=== PATIENT | male | born 1970 | race Caucasian/White ===

== ENCOUNTER 2016-06-17 12:46 | Emergency (ER) | payer BC, MEDICARE ==
[2016-06-17] MEDS ORDERED: Sodium Chloride 0.9% 10 ML Syringe FLUSH PRN (13:45)
[2016-06-17] MEDS ORDERED: Ondansetron 4 MG/2 ML SDV IVPUSH ONE (13:45)
[2016-06-17] MEDS ORDERED: Sodium Chloride 0.9% 10 ML Syringe FLUSH ONE (14:27)
[2016-06-17] MEDS ORDERED: Diatrizoate Meglumine/Diatrizoate Sodium 37% 120 ML Bottle PO ONE (14:27)
[2016-06-17] MEDS ORDERED: Iopamidol 612 MG/ML 150 ML Bottle IVPUSH ONE (14:27)
--- NOTE | 2016-06-17 14:46 | EDM.PDOC ---
ED HPI GI/ABDOMINAL - General Chief Complaint: Abdominal Pain Stated Complaint: ABDOMINAL PAIN Time Seen by Provider: 06/17/16 13:13 Source of Information: Reports: Patient History Limitations: Reports: No limitations - History of Present Illness INITIAL COMMENTS - FREE TEXT/NARRATIVE: Patient presents for evaluation of abdominal. Patient reports of abdominal pain began on Monday. He states it was very severe. he rates as a 7 or 8 he states it comes and goes. States Monday, Monday and were not as severe. He states the pain today is much more severe again and is 8/10. He reports associated symptoms of nausea and one episode of loose stools. His reports that he was very diaphoretic this morning which prompted their visit to the ER. He denies black or bloody stools, constipation, vomiting, fevers, chills, dysuria or hematuria. Patient denies any surgeries to his abdomen. Patient reports that 3 months ago he had similar pain. he states that the pain was in the right upper quadrant that time. He was seen in [place] and was told he has gallstones. She also reports that he is a stone in his appendix. He was treated with pain medication. He states that the pain had resolved until Monday. Patient reports that he last ate at 0930. He states that he had some cake, M& Ms and coffee. Location: [facility] - Related Data Allergies/ADRs: Allergies Allergy/AdvReac Type Severity Reaction Status Date / Time No Known Allergies Allergy Verified 12/17/15 20:44 Home Meds: Home Meds Magnesium Citrate [Citrate of Magnesia] 296 ml PO ONETIME #1 bottle 06/17/16 [Rx ] Past Medical History Cardiovascular History: Reports: Hypertension Gastrointestinal History: Reports: GERD Musculoskeletal History: Reports: Osteoarthritis - Past Surgical History HEENT Surgical History: Reports: Tonsillectomy Male Surgical History: Reports: Circumcision Musculoskeletal Surgical History: Reports: Carpal tunnel Social & Family History - Tobacco Use Smoking Status *Q: Current Some Day Smoker Years of Tobacco use: 30 Packs/Tins Daily: 0.1 - Caffeine Use Caffeine Use: Reports: Coffee, Soda, Tea - Recreational Drug Use Recreational Drug Use: No - Living Situation & Occupation Living situation: Reports: , with spouse 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 Denies: fever, decreased appetite GI/Abdominal: Reports: Abdominal pain (RLQ), Diarrhea (x1 episode), Nausea. Denies: Constipation, Hematochezia, Melena, Vomiting : Reports: no symptoms. Denies: dysuria, flank pain ED EXAM, GI/ABD - Physical Exam Exam: See Below Exam Limited By: No limitations General Appearance: alert, WD/WN, no apparent distress Respiratory/Chest: no respiratory distress, lungs clear, normal breath sounds Cardiovascular: normal peripheral pulses, regular rate, rhythm, no murmur GI/Abdominal: normal bowel sounds, soft, tenderness (RLQ), McBurney's sign. No : guarding, rebound, psoas sign, obturator sign, Rovsing's sign, Rosas's sign Neurological: alert, oriented, normal cognition Psychiatric: normal affect, normal mood Skin Exam: Warm, Dry, Normal color Course - Vital Signs Last Recorded V/S: Last Vital Signs Temp 37.2 C 06/17/16 17:19 Pulse 74 06/17/16 17:19 Resp 24 H 06/17/16 13:19 BP 157/102 H 06/17/16 17:19 Pulse Ox 97 06/17/16 17:19 - Orders/Labs/Meds Labs: Laboratory Tests 06/17/16 06/17/16 06/17/16 Range/Units 13:50 13:50 15:35 WBC 8.19 (4.23-9.07) K/mm3 RBC 5.06 (4.63-6.08) M/mm3 Hgb 15.4 (13.7-17.5) gm/L Hct 45.2 (40.1-51.0) % MCV 89.3 (79.0-92.2) fl MCH 30.4 (25.7-32.2) pg MCHC 34.1 (32.2-35.5) g/dl RDW Std Deviation 41.0 (35.1-43.9) fL Plt Count 276 (163-337) K/mm3 MPV 9.2 L (9.4-12.3) fl Neutrophils % (Manual) 58 (40-60) % Band Neutrophils % 0 (0-10) % Lymphocytes % (Manual) 41 H (20-40) % Atypical Lymphs % 0 % Monocytes % (Manual) 1 L (2-10) % Eosinophils % (Manual) 0 L (0.8-7.0) % Basophils % (Manual) 0 L (0.2-1.2) Platelet Estimate Adequate RBC Morph Comment Normal Sodium 143 (136-145) mEq/L Potassium 5.0 (3.5-5.1) mEq/L Chloride 107 (98-107) mEq/L Carbon Dioxide 29 (21-32) mEq/L Anion Gap 12.0 (5-15) BUN 11 (7-18) mg/dL Creatinine 1.1 (0.7-1.3) mg/dL Est Cr Clr Drug Dosing TNP Estimated GFR (MDRD) > 60 (>60) mL/min BUN/Creatinine Ratio 10.0 L (14-18) Glucose 99 (74-106) mg/dL Calcium 8.8 (8.5-10.1) mg/dL Total Bilirubin 0.3 (0.2-1.0) mg/dL AST 14 L (15-37) U/L ALT 32 (16-63) U/L Alkaline Phosphatase 83 (46-116) U/L C-Reactive Protein 0.2 (<1.0) mg/dL Total Protein 7.8 (6.4-8.2) g/dl Albumin 4.1 (3.4-5.0) g/dl Globulin 3.7 gm/dL Albumin/Globulin Ratio 1.1 (1-2) Lipase 132 (73-393) U/L Urine Color Yellow (Yellow) Urine Appearance Clear (Clear) Urine pH 6.5 (5.0-8.0) Ur Specific [place] 1.025 (1.005-1.030) Urine Protein 1+ H (Negative) Urine Glucose (UA) Negative (Negative) Urine Ketones Negative (Negative) Urine Occult Blood Negative (Negative) Urine Nitrite Negative (Negative) Urine Bilirubin Negative (Negative) Urine Urobilinogen 1.0 (0.2-1.0) Ur Leukocyte Esterase Negative (Negative) Urine RBC 0-5 (0-5) /hpf Urine WBC 0-5 (0-5) /hpf Ur Squamous Epith Cells 0-5 (0-5) /hpf Urine Bacteria Not seen (FEW) /hpf Urine Mucus Not seen (FEW) /hpf Meds: Medications Discontinued Medications Generic Name Dose Route Start Last Admin Trade Name Freq PRN Reason Stop Dose Admin Clonidine HCl 0.1 mg 06/17/16 15:06 06/17/16 15:58 Catapres PO 06/17/16 15:07 Not Given ONETIME ONE Clonidine HCl 0.1 mg 06/17/16 15:32 06/17/16 15:55 Catapres PO 06/17/16 15:33 0.1 mg ONETIME ONE Administration Diatrizoate Meglum/Diatrizoate Sod 90 ml 06/17/16 14:27 06/17/16 15:44 Gastrografin 37% PO 06/17/16 14:28 90 ml ONETIME ONE Administration Hydromorphone HCl 0.5 mg 06/17/16 15:08 06/17/16 15:16 Dilaudid IVPUSH 06/17/16 15:09 0.5 mg ONETIME ONE Administration Iopamidol 125 ml 06/17/16 14:27 06/17/16 15:44 Isovue-300 (61%) IVPUSH 06/17/16 14:28 125 ml ONETIME ONE Administration Ondansetron HCl 4 mg 06/17/16 13:45 06/17/16 14:03 Zofran IVPUSH 06/17/16 13:46 4 mg ONETIME ONE Administration Sodium Chloride 10 ml 06/17/16 13:45 06/17/16 14:11 Saline Flush FLUSH 10 ml ASDIRECTED PRN Administration Keep Vein Open Sodium Chloride 10 ml 06/17/16 14:27 06/17/16 15:44 Saline Flush FLUSH 06/17/16 14:28 10 ml ONETIME ONE Administration - Radiology Interpretation Free Text/Narrative:: CT abdomen and pelvis with contrast impression per Dr. Kay: 1. Appendix within the right upper abdomen. Appendix measures about 8 mm in dimension which is at the upper limits of normal. There is an appendicolith measuring 1.1 cm within the appendix. Minimal inflammatory change is suggested. Please correlate if patient has any confirmatory symptoms for appenicitis. 2. Mild increased stool particularly within the right colon and cecum. 3. Multiple calcified gallstones. 4. Other incidental findings. CT Results Date: 06/17/16 - Re-Assessments/Exams Free Text/Narrative Re-Assessment/Exam: 06/18/16 16:45 Labs returned. WBC is 8.19, hgb is 15.4 and plts are 276 CRP is within normal limits at 0.2 UA shows 1+ protein. Negative for nitrates, leukocytes, blood and glucose. Sodium is 143, potassium is 5.0 chloride is 107. Anion gap is 12.0. Glucose is 99. AST 14, ALT is 32 alkaline phosphatase is 83. Total bilirubin 0.3. Lipase is within normal limits at 132. I reviewed the CT and lab results with the patient. more than likely the constipation causing the pain and not appendicitis. His white blood cell count is CRP are normal. Aside from the right lower quadrant his exam is unremarkable for appendicitis. I'll have him utilize a bottle of mag citrate tomorrow morning if his symptoms continue or worsen he should return to the ER. Followup with his family medicine provider this week to further evaluate the gallstones. Patient reports pain is greatly improved after IV dilaudid. Blood pressure lowered with clonidine. Will discharge home at this time. Discharge instructions as documented. Departure - Departure Time of Disposition: 16:49 Disposition: Home, Self-Care 01 Condition: good Clinical Impression: Constipation, Gallstones Prescriptions: Magnesium Citrate [Citrate of Magnesia] 296 ml PO ONETIME #1 bottle Instructions: Cholelithiasis, [id number], Constipation, Adult Referrals: PCP,None [Primary Care Provider] - Amparo Robbins [Physician] - Forms: ED Department Discharge Additional Instructions: Drink the bottle of mag citrate over 1-2 hours tomorrow morning. OTC tylenol or motrin as needed for pain. Drink plenty of fluids. Follow-up with family med or internal med in 1-2 weeks for your gallstones. You may require an ultrasound and possibly a hida scan to further evaluate your gallbladder. If you are unable to follow-up with inderjit gibbs, recommend Dr. Salas here in [place]. Call [phone] to schedule with him Please return to the ER should your symptoms change or worsen.
[2016-06-17] MEDS ORDERED: cloNIDine 0.1 MG Tab PO ONE ×2 (15:06→15:32)
[2016-06-17] MEDS ORDERED: HYDROmorphone 0.5 MG/0.5 ML Syringe IVPUSH ONE (15:08)
--- NOTE | 2016-06-17 16:19 | CT ---
CT abdomen and pelvis Technique: Multiple axial sections through the abdomen were obtained from above the dome of the diaphragm inferiorly through the pubic symphysis. Intravenous and oral contrast was utilized. Delayed images were also obtained through the abdomen and pelvis. Comparison: No previous study. Increased stool is noted within the right and colon and cecum. Lesser increased stool within other portions of the colon. Appendicoliths are seen within the appendix which is within the right upper quadrant. Appendicolith measures about 1.1 cm in size. Appendix is mildly prominent in size with very minimal inflammatory change being seen. Visualized lung bases shows minimal atelectasis on the right side. Liver and spleen shows no focal parenchymal abnormality. Multiple gallstones are seen within the gallbladder. Adrenal glands show no nodule. Pancreas is within normal limits. Cyst is identified within each kidney. Largest cyst measures approximately 2.3 cm. Aorta shows no aneurysmal dilatation. No retroperitoneal adenopathy or mesenteric abnormalities are seen. No pelvic mass or adenopathy is seen. Small fat-containing bilateral inguinal hernias are incidentally noted. Bone window settings shows scattered degenerative change within the spine. Delayed images shows contrast excretion into both ureters. Ureters show no dilatation. Contrast noted within the bladder. Impression: 1. Appendix within the right upper abdomen. Appendix measures about 8 mm in dimension which is at the upper limits of normal. There is an appendicolith measuring 1.1 cm within the appendix. Minimal inflammatory change is suggested. Please correlate if patient has any confirmatory symptoms for appendicitis. 2. Mild increased stool particularly within the right colon and cecum. 3. Multiple calcified gallstones. 4. Other incidental findings as noted above. Diagnostic code #3
[2016-06-17 17:24] VITALS: BP 157/102
== END 2016-06-17 17:25 | disposition home or self-care (01) ==
LOC: JD.ED 12:46
DX: K80.80 Other cholelithiasis without obstruction (principal); K59.00 Constipation, unspecified; I10 Essential (primary) hypertension; F17.210 Nicotine dependence, cigarettes, uncomplicated; Z98.890 Other specified postprocedural states
CPT/HCPCS: 36415; 74177; 80053; 81001; 83690; 85025; 86140; 96374; 96375; 99284; A9270; J1170; J2405; J7050; Q9963; Q9967